=== PATIENT | female | born 1975 | race African-American/Black ===

== ENCOUNTER 2016-11-22 14:19 | Emergency (ER) | payer OTHER ==
[~2016-11-22] VITALS: Ht 149.9 cm; Wt 95.3 kg
--- NOTE | ~2016-11-22 | EKG ---
[place] [address] [facility] [place] [address] ELECTROCARDIOGRAM REPORT Name: HUGH ARORA Room #: DEP JANICE Simmons#: [id number] Admission: 11/22/16 Attend Phys: Discharge: 11/22/16 Date of : 79 Report #: [id number] THIS REPORT FOR: //name// [facility] ED Test Date: 2016-11-22 Test Time: 14:49:17 Pat Name: HUGH ARORA Department: Room: Gender: F [employer]: Jarrett GOMEZ : 1975 Requested By: Avi Pryor Order Number: [id number] MD: Chad Prakash Measurements Intervals [place] Rate: 65 P: 46 CO: 155 QRS: 26 QRSD: 88 T: 13 QT: 399 QTc: 415 Interpretive Statements Sinus rhythm Abnormal R-wave progression, early transition No previous ECG available for comparison Electronically Signed On 11-23-2016 15:57:00 CDT by Chad Prakash [email or web address] <ELECTRONICALLY SIGNED> By: Chad Prakash MD, [facility] 11/23/16 1557 1449 1449 Chad Prakash MD, FACC /EPI
[~2016-11-22 14:19] MED LIST: NOHOMEMEDICATIONS; PROCTOFOAM-HC F10 G1 RE
[2016-11-22 14:35] LABS: URINE BILIRUBIN NEGATIVE (Negative); URINE BLOOD NEGATIVE (Negative); URINE COLOR YELLOW; URINE GLUCOSE-RANDOM* NEGATIVE (Negative); URINE KETONES NEGATIVE (Negative); URINE NITRITE NEGATIVE (Negative); URINE PROTEIN (DIPSTICK) NEGATIVE (Negative); URINE SPECIFIC GRAVITY 1.025 (1.003-1.035); URINE UROBILINOGEN 0.2 E.U./dl (0.2-1.0)
[2016-11-22 14:54] LABS: ABSOLUTE NEUTROPHILS 7.1 thou/uL (1.4-8.2); BASOPHILS 0.6 % (0.0-2.0); EOSINOPHILS 0.8 % (0.0-3.0); HEMATOCRIT 37.1 % (37.0-47.0); LYMPHOCYTES 32.2 % (24.0-44.0); MCH 29.2 pg (26.0-34.0); MCHC 34.9 g/dL (28.0-37.0); MCV 83.6 fL (80.0-100.0); MONOCYTES 5.3 % (1.0-8.0); PLATELET COUNT 343 thou/uL (150-400); POLYS 61.1 % (36.0-66.0); RBC 4.43 mil/uL (4.20-5.00); WBC 11.5 thou/uL (4.0-11.0)
[2016-11-22 14:55] LABS: MANUAL DIFF NO
[2016-11-22 15:03] LABS: CALCIUM 9.8 mg/dL (8.5-10.1); CREATININE 0.8 mg/dL (0.6-1.0); POTASSIUM 4.4 mmol/L (3.5-5.1)
[2016-11-22 15:07] LABS: ALBUMIN 3.7 g/dL (3.4-5.0); TOTAL BILIRUBIN 0.4 mg/dL (<0.1-1.0); TOTAL PROTEIN 8.4 g/dL (6.4-8.2)
[2016-11-22] MEDS ORDERED: LEVSIN-SL0.125 MG SL (15:53)
[2016-11-22] MEDS ORDERED: TORADOL 10 MG T10 MG PO (15:53)
[2016-11-22 16:58] VITALS: BP 161/69
== END 2016-11-22 16:59 | disposition home or self-care (01) ==
LOC: ER 14:19
PROVIDERS: Physician Assistant
DX: R19.7 Diarrhea, unspecified (principal); R55 Syncope and collapse